=== PATIENT | female | born 1935 | race Caucasian/White ===

== ENCOUNTER → 2016-10-25 10:03 | Outpatient (CLI) | payer MEDICARE, BC ==
[2016-06-04 10:30] VITALS: BMI 33.0
[~2016-10-25 10:03] MED LIST: ACIDOPHILUS LAC1 CAP PO; BACTRIM DS TABL1 TAB PO; BAYER CHEWABLE81 MG PO; BETAPACE 80 MG80 MG PO; CITRACAL + D E1 EACH PO; ELIQUIS2.5 MG PO; ICAPS AREDS1 TAB.SA PO; LOPRESSOR25 MG PO; OSTEO BI-FLEX1 EAC1 PO; OXYCODONE HCL5 MG PO; RED YEAST RICE600 MG PO; REMICADE INJ100 MG
== END | disposition home or self-care (01) ==
LOC: D.US 10:03
DX: R60.0 Localized edema (principal)